=== PATIENT | female | born 1985 | race Caucasian/White ===

== ENCOUNTER 2016-07-12 04:10 | Emergency (ER) | payer SELFPAY ==
[~2016-07-12] VITALS: Ht 167.6 cm; Wt 121.0 kg
[~2016-07-12 04:10] MED LIST: ACET325T33 PO; LORA1TAB PO
[2016-07-12 04:14] VITALS: Ht 167.6 cm; Wt 121.0 kg
[2016-07-12] MEDS ORDERED: IBUP400T22 PO (05:00)
[2016-07-12] MEDS ORDERED: [UNRECOGNIZED DRUG - CODE] IM (05:01)
[2016-07-12] MEDS ORDERED: FLUT9.9S NASAL (05:03)
[2016-07-12] MEDS ORDERED: LORA1TAB54 PO (05:03)
--- NOTE | 2016-07-12 05:12 | ERD ---
ER Documentation Chief Complaint Date/Time DATE: 07/12/16 TIME: 05:[address] for 3 weeks and not getting better HPI This is a 31 this is a 31-year-old female presenting to the emergency room complaining of sore throat for the past 3 weeks. Patient states that she has had nasal congestion, ear pain, sinusitis symptoms for the past 3 weeks and she started having a worsening sore throat in the past few days. Patient states that she has painful swallowing. She denies taking any medications for this today. ROS All systems reviewed and are negative except as per history of present illness. Medications Home Meds Active Scripts Loratadine/Pseudoephedrine* (Claritin-D* 12 Hr) 5-120 Mg Tab.er.12h, 1 TAB PO Q12, #20 TAB.SA Prov:JAGJIT PAEZ PA-C 07/12/16 Fluticasone Propionate (Flonase Allergy Relief) 9.9 Ml Graham.susp, 1 SPRAY NASAL BID, #1 BOTTLE TO EACH NOSTRIL Prov:JAGJIT PAEZ PA-C 07/12/16 Ibuprofen* (Ibuprofen*) 400 Mg Tablet, 400 MG PO Q6H Y for PAIN, #30 TAB Prov:JAGJIT PAEZ PA-C 07/12/16 Acetaminophen* (Tylenol*) 325 Mg Tablet, 2 TAB PO Q8 Y for PAIN AND OR ELEVATED TEMP, #20 TAB Prov:ELSY BRUMFIELD PA-C 02/29/16 Lorazepam* (Lorazepam*) 1 Mg Tablet, 1 MG PO Q8, #15 TAB Prov:PAWAN ALARCON PA-C 12/13/15 Lorazepam* (Lorazepam*) 1 Mg Tablet, 1 MG PO Q8, #10 TAB Prov:DEISI GASTON PA-C 10/09/15 Allergies Allergies: Coded Allergies: No Known Allergy (Unverified , 10/09/15) PMhx/Soc Medical and Surgical Hx: pt denies Surgical Hx History of Surgery: No Anesthesia Reaction: No Hx Neurological Disorder: No Hx Respiratory Disorders: No Hx Cardiac Disorders: No Hx Psychiatric Problems: Yes (anxiety) Hx Miscellaneous Medical Probl: No Hx Alcohol Use: No Hx Substance Use: No Hx Tobacco Use: No Smoking Status: Former smoker Physical Exam Vitals Vital Signs Date Time Temp Pulse Resp B/P Pulse Ox O2 Delivery O2 Flow Rate FiO2 07/12/16 04:14 98.5 93 20 146/77 98 Physical Exam GENERAL: well-developed/well-nourished, in no apparent distress, non-toxic appearing HEAD: NC/AT, no swelling noted in frontal or maxillary areas EARS: bilateral tympanic membrane is intact without erythema or effusion NARES: Congested d THROAT: oropharynx erythematous with tonsillar exudate EYES: Conjunctiva normal NECK: Supple, no lymphadenopathy PULM: CTA bilaterally, no rales, rhonchi, or wheezing heard CV: Normal S1S2, RRR, good capillary refill GI: Soft, non-distended, normal bowel sounds, non-tender BACK: No midline tenderness, no masses EXT No clubbing, cyanosis, or edema NEURO: Alert and Orientated SKIN: Intact, normal turgor PSYCH: Normal mood and mentation Results 24 hrs Current Medications Medications (Trade) Dose Ordered Sig/Jenn Route PRN Reason Start Time Stop Time Status Last Admin Dose Admin Penicillin G Benzathine (Bicillin La) 1,200,000 units ONCE ONCE IM 07/12/16 05:30 07/12/16 05:31 Procedures/MDM This is a 31-year-old female presenting to the emergency room complaining of symptoms of sinusitis for the past 3 weeks with a worsening pharyngitis for the past few days. On examination patient had tonsillar exudates with cervical and without adenopathy. She she states that she had a history of fever and a cough however she said that the cough started 3 weeks ago. Patient had 3-4 out signs of Centor criteria therefore she will be treated for strep pharyngitis. In the ED patient was given a penicillin G injection. She is given prescription for Sudafed, Claritin, ibuprofen and Flonase. There was no evidence of retropharyngeal abscess, peritonsillar abscess, Ed's angina. There is no evidence of pneumonia or bacterial sinusitis. Patient is stable she appears well for discharge. Discussed return to the emergency room for any worsening signs or symptoms. She understands and agrees with this plan Departure Diagnosis: Primary Impression: Sinusitis Condition: Stable Patient Instructions: Self-Care for Sore Throats, Sinusitis, No Abx Referrals: COMM[facility]ITY CLINICS YOU HAVE RECEIVED A MEDICAL SCREENING EXAM AND THE RESULTS INDICATE THAT YOU DO NOT HAVE A CONDITION THAT REQUIRES URGENT TREATMENT IN THE EMERGENCY DEPARTMENT. FURTHER EVALUATION AND TREATMENT OF YOUR CONDITION CAN WAIT UNTIL YOU ARE SEEN IN YOUR DOCTORS OFFICE WITHIN THE NEXT 1-2 DAYS. IT IS YOUR RESPONSIBILITY TO MAKE AN APPOINTMENT FOR FOLOW-UP CARE. IF YOU HAVE A PRIMARY DOCTOR --you should call your primary doctor and schedule an appointment IF YOU DO NOT HAVE A PRIMARY DOCTOR YOU CAN CALL OUR PHYSICIAN REFERRAL HOTLINE AT IF YOU CAN NOT AFFORD TO SEE A PHYSICIAN YOU CAN CHOSE FROM THE FOLLOWING FORMERLY [facility], [facility] [address] [facility] [address] [facility] [address] [facility] [address] [facility] [facility] [address] [facility]. [facility]. [address] Additional Instructions: FOLLOW UP WITH YOUR PRIMARY CARE PHYSICIAN TOMORROW.Return to this facility if you are not improving as expected. Take all medicines as directed. Return to this facility if you are not improving as expected. JAGJIT PAEZ PA-C Jul 12, 2016 05:12
[2016-07-12] MEDS ORDERED: PENICILLIN G BENZ 1.2 MIL UNIT SYG IM ONE (05:30)
== END 2016-07-12 05:32 | disposition home or self-care (01) ==
LOC: FTE 04:10
DX: J32.9 Chronic sinusitis, unspecified (principal); Z87.891 Personal history of nicotine dependence
CPT/HCPCS: 96372; 99284; J0561